=== PATIENT | male | born 1965 | race Caucasian/White ===

== ENCOUNTER 2019-04-03 00:33 | Emergency (ER) | payer OTHER ==
[~2019-04-03] VITALS: Ht 170.2 cm; Wt 79.4 kg
[~2019-04-03 00:33] MED LIST: BUPR150T2; BUPR150T2 PO; CHLO25 PO; GABA300; HYDACE10B; HYDACE10B PO; HYDPAM50; HYDPAM50 PO; METH10; ONDA4ODT MM; OXYC5 PO; RXONDA4ODT MM; Robaxin500 MG PO
[2019-04-03 00:58] LABS: BASOPHILS PERCENT AUTO 1 % (0-2); EOSINOPHILS ABSOLUTE AUTO 0.21 K/mm3 (0.00-0.68); EOSINOPHILS PERCENT AUTO 2 % (0-6); Hematocrit 36.8 % (37.0-53.0); Hemoglobin 12.3 g/dL (13.5-17.5); IMMATURE GRAN ABSOLUTE AUTO 0.04 K/mm3 (0.00-0.10); IMMATURE GRAN PERCENT AUTO 0 % (0-1); LYMPHOCYTES ABSOLUTE AUTO 3.63 K/mm3 (0.84-5.20); LYMPHOCYTES PERCENT AUTO 29 % (21-46); MONOCYTES ABSOLUTE AUTO 1.29 K/mm3 (0.16-1.47); MONOCYTES PERCENT AUTO 10 % (4-13); Mean Corpuscular HGB Conc 33.4 g/dL (31.5-36.5); Mean Corpuscular Volume 108 fL (80-100); Mean Platelet Volume 9.5 fL (9.1-12.4); NEUTROPHILS ABSOLUTE AUTO 7.43 K/mm3 (1.96-9.15); NEUTROPHILS PERCENT AUTO 58 % (41-73); Platelet Count 123 K/mm3 (150-400); RDW Coefficient Variation 13.8 % (11.7-14.2); RDW Standard Deviation 55.6 fL (35.1-46.3); Red Blood Cell Count 3.42 M/mm3 (4.30-5.90)
[2019-04-03 01:14] LABS: International Normalized Ratio 1.36
[2019-04-03 01:15] LABS: Alanine Aminotransfer (ALT/SGP 46 U/L (12-78); Albumin/Globulin Ratio 0.7 (0.8-1.8); Alk Phos 115 U/L (50-136); Anion Gap 9 mmol/L (6-16); Aspartate Aminotrans (AST/SGOT 64 U/L (12-37); Bilirubin, Total 1.1 mg/dL (0.1-1.0); Blood Urea Nitrogen 19 mg/dL (8-24); Bun/Creatinine Ratio 31.6 (12.0-20.0); CO2, Blood 24 mmol/L (21-32); Chloride, Blood 108 mmol/L (98-108); Ethanol (Alcohol), Blood, Med 290 mg/dL; Globulin, Blood 4.4 g/dL (2.2-4.0); Glomerular Filtration Rate >60 (60-); Glucose, Blood 105 mg/dL (70-99); Potassium, Blood 3.5 mmol/L (3.5-5.5); Sodium, Blood 141 mmol/L (136-145); Total Protein, Blood 7.4 g/dL (6.4-8.2)
[2019-04-03] MEDS ORDERED: Protonix40 MG PO (04:06)
== END 2019-04-03 04:13 | disposition home or self-care (01) ==
LOC: ER 00:33
PROVIDERS: Emergency Medicine
DX: K29.20 Alcoholic gastritis without bleeding (principal); F10.129 Alcohol abuse with intoxication, unspecified; Y90.8 Blood alcohol level of 240 mg/100 ml or more; F17.200 Nicotine dependence, unspecified, uncomplicated; D53.9 Nutritional anemia, unspecified
CPT/HCPCS: 80053; 83690; 85025; 85610; 86850; 86900; 86901; 93005; 93010; 96361; 96374; 96375; 99284-25; C9113; G0480; J2405; J7030

== ENCOUNTER 2019-05-02 13:15 | Emergency (ER) | payer OTHER ==
[~2019-05-02] VITALS: Ht 170.2 cm; Wt 74.8 kg
[~2019-05-02 13:15] MED LIST changes: +Protonix40 MG PO
[2019-05-02 13:52] LABS: BASOPHILS ABSOLUTE AUTO 0.07 K/mm3 (0.00-0.23); BASOPHILS PERCENT AUTO 1 % (0-2); EOSINOPHILS ABSOLUTE AUTO 0.01 K/mm3 (0.00-0.68); EOSINOPHILS PERCENT AUTO 0 % (0-6); Hematocrit 28.7 % (37.0-53.0); Hemoglobin 9.6 g/dL (13.5-17.5); IMMATURE GRAN ABSOLUTE AUTO 0.03 K/mm3 (0.00-0.10); IMMATURE GRAN PERCENT AUTO 0 % (0-1); LYMPHOCYTES ABSOLUTE AUTO 1.57 K/mm3 (0.84-5.20); LYMPHOCYTES PERCENT AUTO 16 % (21-46); MONOCYTES PERCENT AUTO 9 % (4-13); Mean Corpuscular HGB 35.8 pg (26.0-34.0); Mean Corpuscular HGB Conc 33.4 g/dL (31.5-36.5); Mean Corpuscular Volume 107 fL (80-100); Mean Platelet Volume 10.5 fL (9.1-12.4); NEUTROPHILS ABSOLUTE AUTO 7.42 K/mm3 (1.96-9.15); NEUTROPHILS PERCENT AUTO 74 % (41-73); Platelet Count 73 K/mm3 (150-400); RDW Coefficient Variation 14.6 % (11.7-14.2); RDW Standard Deviation 58.3 fL (35.1-46.3); Red Blood Cell Count 2.68 M/mm3 (4.30-5.90)
[2019-05-02 14:10] LABS: Alanine Aminotransfer (ALT/SGP 47 U/L (12-78); Albumin/Globulin Ratio 0.7 (0.8-1.8); Alk Phos 103 U/L (50-136); Anion Gap 12 mmol/L (6-16); Aspartate Aminotrans (AST/SGOT 91 U/L (12-37); Bilirubin, Total 1.6 mg/dL (0.1-1.0); Blood Urea Nitrogen 22 mg/dL (8-24); Bun/Creatinine Ratio 30.8 (12.0-20.0); CO2, Blood 24 mmol/L (21-32); Calcium, Blood 8.1 mg/dL (8.5-10.1); Chloride, Blood 105 mmol/L (98-108); Creatinine, Blood 0.71 mg/dL (0.60-1.20); Globulin, Blood 4.4 g/dL (2.2-4.0); Glomerular Filtration Rate >60 (60-); Glucose, Blood 124 mg/dL (70-99); Potassium, Blood 3.7 mmol/L (3.5-5.5); Sodium, Blood 141 mmol/L (136-145); Total Protein, Blood 7.4 g/dL (6.4-8.2)
== END 2019-05-02 15:52 | disposition left against medical advice (07) ==
LOC: ER 13:15
PROVIDERS: Emergency Medicine
DX: K92.2 Gastrointestinal hemorrhage, unspecified (principal); D64.9 Anemia, unspecified; F17.210 Nicotine dependence, cigarettes, uncomplicated
CPT/HCPCS: 36415; 80053; 82272; 83690; 85025; 86850; 86900; 86901; 93005; 93010; 96361; 96365; 96368; 99285-25; C9113; J3411; J3475; J7030; J7042

== ENCOUNTER 2019-05-14 00:44 | Inpatient (IN) | payer OTHER ==
[~2019-05-14] VITALS: Ht 170.2 cm; Wt 77.1 kg
[2019-05-14] MEDS ORDERED: ASPI325 (00:57)
[2019-05-14 02:15] LABS: International Normalized Ratio 2.48; Prothrombin Time Results 24.2 Sec (9.7-11.5)
[2019-05-14 02:17] LABS: BASOPHILS ABSOLUTE AUTO 0.01 K/mm3 (0.00-0.23); BASOPHILS PERCENT AUTO 0 % (0-2); EOSINOPHILS PERCENT AUTO 0 % (0-6); IMMATURE GRAN ABSOLUTE AUTO 0.09 K/mm3 (0.00-0.10); IMMATURE GRAN PERCENT AUTO 1 % (0-1); LYMPHOCYTES ABSOLUTE AUTO 1.16 K/mm3 (0.84-5.20); LYMPHOCYTES PERCENT AUTO 13 % (21-46); MONOCYTES PERCENT AUTO 9 % (4-13); Mean Corpuscular HGB 33.3 pg (26.0-34.0); Mean Corpuscular HGB Conc 27.3 g/dL (31.5-36.5); Mean Platelet Volume 10.9 fL (9.1-12.4); NEUTROPHILS ABSOLUTE AUTO 7.16 K/mm3 (1.96-9.15); NEUTROPHILS PERCENT AUTO 78 % (41-73); NRBC ABSOLUTE 0.05 K/mm3 (0.00-0.02); NRBC Auto 0.5 /100 WBC (0.0-0.2); Platelet Count 131 K/mm3 (150-400); RDW Coefficient Variation 16.5 % (11.7-14.2); RDW Standard Deviation 70.4 fL (35.1-46.3); Red Blood Cell Count 1.14 M/mm3 (4.30-5.90); White Blood Cell Count 9.22 K/mm3 (4.00-11.30)
[2019-05-14 02:21] LABS: Hematocrit 13.9 % (37.0-53.0); Hemoglobin 3.8 g/dL (13.5-17.5); Mean Corpuscular Volume 122 fL (80-100)
[2019-05-14 02:23] LABS: Troponin I 0.084 ng/mL (0.000-0.040)
[2019-05-14 02:34] LABS: Albumin, Blood 2.1 g/dL (3.4-5.0); Albumin/Globulin Ratio 0.7 (0.8-1.8); Bilirubin, Total 2.4 mg/dL (0.1-1.0); Bun/Creatinine Ratio 20.8 (12.0-20.0); Calcium, Blood 6.8 mg/dL (8.5-10.1); Creatinine, Blood 1.54 mg/dL (0.60-1.20); Globulin, Blood 3.1 g/dL (2.2-4.0); Potassium, Blood 5.7 mmol/L (3.5-5.5); Total Protein, Blood 5.2 g/dL (6.4-8.2)
[2019-05-14 03:18] LABS: Magnesium, Blood 2.2 mg/dL (1.6-2.4)
[2019-05-14 03:36] LABS: PCO2 Arterial 50.5 mmHg (35-45); PO2 Arterial 80.9 mmHg (80-100); pH Blood Arterial <6.80 (7.35-7.45)
[2019-05-14 05:05] LABS: Calcium, Ionized (POC) 0.79 mmol/L (1.10-1.46); Chloride (POC) 104 mmol/L (98-108); Creatinine (POC) 1.9 mg/dL (0.8-1.3); Glucose (ISTAT POC) 94 mg/dL (70-99); Hemoglobin (POC) 7.5 g/dL (13.5-17.5); Potassium (POC) 4.9 mmol/L (3.5-5.5); Sodium (POC) 135 mmol/L (135-148); Total CO2 (POC) 10 mmol/L (21-32)
[2019-05-14 06:50] LABS: Hematocrit 25.7 % (37.0-53.0); Hemoglobin 7.4 g/dL (13.5-17.5)
--- NOTE | 2019-05-14 07:18 | NUR ---
ASSUMED PT CARE AT 0530 PT ARRIVED ON UNIT FROM ED SECONDARY TO GI BLEED. BEDSIDE REPORT GIVEN. PT INTUBATED WITH PROPOFOL AT 10MCG/KG/MIN. NO PURPOSEFUL MOVEMENTS; BLOOD PRESSURES WERE DROPPING QUICKLY; THEREFORE, PROPOFOL TURNED OFF AND PT WAS BOLUSED WITH ONE LITER OF NS AND LEVOPHED WAS STARTED AT 15MCG/MIN. PT CONTINUED TO HAVE LOW BP'S WITH MAP'S 50'S. DR. ERNST AT BEDSIDE ATTEMPTING TO PLACE CENTRAL LINE TO LEFT IJ. HR JUMPED FROM 100'S TO 160'S SIMULTANEOUSLY WITH CENTRAL LINE PLACEMENT AND INITIATION OF LEVOPHED. 1MG OF VERSED GIVEN FOR SEDATION WITH NO EFFECT/CHANGE TO HR. NEW ORDERS FROM DR. ERNST TO START INDU-SYNEPHRINE, BUT CONTINUE LEVOPHED UNTIL INDU ARRIVED. LEVOPHED TITRATED UP TO 20MCG/MIN BP CONTINUED TO DECLINE WITH MAP'S IN THE 50'S. VENT SETTINGS: AC 16, TV 450, PEEP 8, FIO2 70% WITH BIOX 90'S. RR 20-30'S. THIN BROWN/YELLOW/BLOOD TINGED SPUTUM NOTED. ETT 7.0 TUBE; 23CM AT THE LIP. PT HAS REMAINED UNRESPONSIVE WITH NO PURPOSEFUL MOVEMENTS SINCE PROPOFOL WAS TURNED OFF; THEREFORE, PT HAS REMAINED OUT OF RESTRAINTS. CORDIS PLACED IN ED TO RIGHT FEMORAL SITE; PROTONIX GTT INFUSING. IO TO RIGHT TIBIAL REGION WITH SANDOSTATIN INFUSING. IO TO RIGHT HUMERUS WITH NS BOLUS AND LEVOPHED INFUSING. CENTRAL LINE TO RIGHT IJ NOT USED D/T HEMATOMA THAT FORMED IN ED; HOWEVER, LEFT IN PLACE D/T HIGH BLEEDING RISK. DRESSING OVER LEFT FEMORAL SITE FROM FAILED CENTRAL LINE PLACEMENT. PRESSURE HELD FOR AT LEAST 45 MINUTES TO LEFT IJ SECONDARY TO OOZING. ZAMUDIO CATHETER IS PATENT WITH MINIMAL TO NO URINE OUTPUT NOTED TO UROMETER. BEAR HUGGER PLACED ON PT D/T ZAMUDIO TEMP PROBE SHOWING TEMP OF 93. OG CONTINUES TO PRODUCE DARK BROWN OUTPUT WITH SEDIMENT NOTED. BEDSIDE REPORT HANDED OFF TO LISBETH PIZANO AND SLIPS WERE SENT TO LAB FOR MORE BLOOD PRODUCT, WELL ED WAS CALLED FOR RAPID TRANSFUSER.
[2019-05-14 07:19] LABS: Troponin I 0.249 ng/mL (0.000-0.040)
--- NOTE | 2019-05-14 07:28 | NUR ---
DR. GARCIA VERIFIED LEFT IJ CENTRAL LINE FOR USE.
[2019-05-14 07:33] LABS: Creatine Kinase MB 11.6 ng/mL (0.0-3.6); Creatine Kinase MB Index 1.6 (0.0-4.0)
[2019-05-14 08:00] LABS: Albumin, Blood 2.3 g/dL (3.4-5.0); Albumin/Globulin Ratio 0.7 (0.8-1.8); Bilirubin, Total 2.2 mg/dL (0.1-1.0); Bun/Creatinine Ratio 16.9 (12.0-20.0); Calcium, Blood 7.8 mg/dL (8.5-10.1); Creatinine, Blood 1.78 mg/dL (0.60-1.20); Globulin, Blood 3.1 g/dL (2.2-4.0); Potassium, Blood 4.9 mmol/L (3.5-5.5); Total Protein, Blood 5.4 g/dL (6.4-8.2)
--- NOTE | 2019-05-14 08:22 | NUR ---
05/14/19 0822 Jhony Jay History, Chart, Medications and Allergies reviewed before start of procedure.MONITOR INTACT WITH CONTINUOUS PULSE OXIMETRY AND INTERMITTENT BP.3-LEAD EKG REVIEWED WITH PHYSICIAN PRIOR TO START OF PROCEDURE.PT VENTILATED WITH MASSIVE TRANSFUSION GOING.
[2019-05-14 08:25] LABS: PCO2 Arterial 44.1 mmHg (35-45); PO2 Arterial 74.2 mmHg (80-100)
[2019-05-14 08:27] LABS: pH Blood Arterial <6.80 (7.35-7.45)
[2019-05-14 08:52] LABS: Mean Corpuscular HGB 31.1 pg (26.0-34.0); Mean Corpuscular HGB Conc 28.7 g/dL (31.5-36.5); Mean Platelet Volume 10.2 fL (9.1-12.4); NRBC ABSOLUTE 0.07 K/mm3 (0.00-0.02); NRBC Auto 0.5 /100 WBC (0.0-0.2); Platelet Count 130 K/mm3 (150-400); RDW Coefficient Variation 19.2 % (11.7-14.2); RDW Standard Deviation 72.1 fL (35.1-46.3); Red Blood Cell Count 2.35 M/mm3 (4.30-5.90); White Blood Cell Count 13.46 K/mm3 (4.00-11.30)
[2019-05-14 08:54] LABS: Hematocrit 32.1 % (37.0-53.0); Hemoglobin 9.6 g/dL (13.5-17.5)
[2019-05-14 08:57] LABS: Mean Corpuscular Volume 108 fL (80-100)
[2019-05-14 09:17] LABS: Magnesium, Blood 2.4 mg/dL (1.6-2.4)
[2019-05-14 09:40] LABS: International Normalized Ratio 1.74
[2019-05-14 09:52] LABS: BAND PERCENT MAN 11 % (0-8); BASOPHILS ABSOLUTE MAN 0.13 K/mm3 (0.00-0.23); BASOPHILS PERCENT MAN 1 % (0-2); EOSINOPHILS PERCENT MAN 0 % (0-6); LYMPHOCYTES ABSOLUTE MAN 2.15 K/mm3 (0.84-5.20); LYMPHOCYTES PERCENT MAN 16 % (21-46); MONOCYTES PERCENT MAN 3 % (4-13); MYELOCYTE ABSOLUTE MAN 0.13 K/mm3 (0.00-0.00); MYELOCYTE PERCENT MAN 1 % (0-0); NEUTROPHILS ABSOLUTE MAN 10.63 K/mm3 (1.96-9.15); SEG NEUTROPHILS PERCENT MAN 68 % (41-73); TOTAL CELLS COUNTED 100
[2019-05-14 09:55] LABS: Phosphorus, Blood 9.3 mg/dL (2.5-4.9)
--- NOTE | 2019-05-14 10:00 | NUR ---
0700 PT WAS FOUND TO BE UNRESPONSIVE AND INTUBATED. NIGHT RN WAS APPLYING MANUAL PRESSURE TO OOZING/BLEEDING LEFT IJ CENTRAL LINE. MD AWARE OF BLEEDING. RIJ LEFT IN PLACE, BUT IN WRONG POSITION. UNABLE TO REMOVE LINE DUE TO PT'S CURRENT COAGULAPTHY. PT HAD A VERY ROUNDED/TAUT ABDOMEN. OG IN PLACE AT LIS REMOVING BRB/COFFEE GROUND COLORED FLUID. PT IS ON LEVOPHED AT 2OMCG/MIN, IVF BOLUS RUNNING AND ORDERS FOR INDU AND REMAINS HYPOTESIVE. PLAN FOR PT TO RECEIVED ENDSCOPY AND 2 PRBC'S. 0830 ENDO TEAM AT BEDSIDE SETTING UP FOR PROCEDURE. PLEASE REFER TO THEIR CHARTING ABOUT SCOPE. DURING PROCEDURE PT WOULD CONTINUE TO DROP BLOOD PRESSURES AND REQUIRE MULTIPLE TITRATIONS TO INDU. PT RECEIVED 2 UNITS FFP DURING PROCEDURE AND IVF. 0918 DURING THE PROCEDURE PT'S HR WAS SLOWING AND PT WAS BECOMING MORE DIFFICULT TO VENTILATE. PT WAS ACTIVELY BLEEDING FROM ETT, CENTRAL LINE SITES AND SUCTIONED CONTENTS FROM ESOPHAGUS. LEON HAMPTON CALLED AFTER PT BECAME BRADICARDIC WITH NO PULSE AND WENT INTO ASYSTOLE. CPR INITIATED. SEE LEON BLUE CHARTING. PT AT 0937. 0940 POST MORTEM CARE DONE, BELONGINGS GATHERED. AWAITING FAMILY.
[2019-05-14 10:06] LABS: Prothrombin Time Results 17.5 Sec (9.7-11.5)
--- NOTE | 2019-05-14 16:04 | NUR ---
1547 PT TO HOME. BELONGINGS SENT HOME WITH PT'S SISTER WHO WAS NOTIFIED OF BY NURSING INFORMATION SERVICES VICE PRESIDENT.
== END 2019-05-14 09:37 | DRG 377 ==
LOC: ER 00:44 → ICUW 05:20
PROVIDERS: Emergency Medicine; Internal Medicine Critical Care Medicine; Internal Medicine Gastroenterology; ADMIT Internal Medicine
PROC: 5A1935Z Respiratory Ventilation, Less than 24 Consecutive Hours (ICD-10-PCS; 2019-05-14)
PROC: 30233N1 Transfusion of Nonautologous Red Blood Cells into Peripheral Vein, Percutaneous Approach (ICD-10-PCS; 2019-05-14)
PROC: 30233K1 Transfusion of Nonautologous Frozen Plasma into Peripheral Vein, Percutaneous Approach (ICD-10-PCS; 2019-05-14)
PROC: 30233R1 Transfusion of Nonautologous Platelets into Peripheral Vein, Percutaneous Approach (ICD-10-PCS; 2019-05-14)
PROC: 3E033XZ Introduction of Vasopressor into Peripheral Vein, Percutaneous Approach (ICD-10-PCS; 2019-05-14)
PROC: 5A12012 Performance of Cardiac Output, Single, Manual (ICD-10-PCS; 2019-05-14)
PROC: 02HV33Z Insertion of Infusion Device into Superior Vena Cava, Percutaneous Approach (ICD-10-PCS; 2019-05-14)
PROC: 0W3P8ZZ Control Bleeding in Gastrointestinal Tract, Via Natural or Artificial Opening Endoscopic (ICD-10-PCS; principal; 2019-05-14 08:00)
PROC: 0BH17EZ Insertion of Endotracheal Airway into Trachea, Via Natural or Artificial Opening (ICD-10-PCS; 2019-05-14 08:00)
DX: K92.2 Gastrointestinal hemorrhage, unspecified (principal); K72.00 Acute and subacute hepatic failure without coma; J96.01 Acute respiratory failure with hypoxia; J69.0 Pneumonitis due to inhalation of food and vomit; N17.9 Acute kidney failure, unspecified; E87.2 Acidosis; R57.8 Other shock; I46.9 Cardiac arrest, cause unspecified; E87.5 Hyperkalemia; M54.9 Dorsalgia, unspecified; F10.21 Alcohol dependence, in remission; F17.210 Nicotine dependence, cigarettes, uncomplicated; D50.0 Iron deficiency anemia secondary to blood loss (chronic)
CPT/HCPCS: 31720; 36415; 36430; 36556; 36600; 36680; 51702; 71045; 80047; 80053; 82330; 82550; 82553; 82803; 83605; 83735; 84100; 84484; 85014; 85018; 85025; 85384; 85610; 85730; 86850; 86900; 86901; 86920; 86923; 87040; 87077; 87186; 92950; 93005; 93010; 94002; 96361-59; 96374-59; 96375-59; 96376-59; 99291-25; 99292; C1751; C9113; G0480; J0171; J0696; J2250; J2354; J2370; J2405; J2543; J2704; J2765; J3010; J7030; J7050; J7060; J7120; P9016; P9053; P9059